=== PATIENT | male | born 1960 | race Caucasian/White ===

== ENCOUNTER 2017-11-08 17:33 | Inpatient (IN) ==
[2017-11-08 18:33] LABS: Amphetamine Screen,Urine Negative ng/mL (Cutoff=1000); Barbiturate Screen,Urine Negative ng/mL (Cutoff=200); Benzodiazepines Screen,Urine Positive ng/mL (Cutoff=200); Cannabinoid Screen,Urine Negative ng/mL (Cutoff = 50); Cocaine Screen,Urine Negative ng/mL (Cutoff= 300); Opiate Screen,Urine Positive ng/mL (Cutoff=300); Phencyclidine Screen,Urine Negative ng/mL (Cutoff=25)
--- NOTE | 2017-11-08 18:59 | Emergency Department Note ---
Overdose - [facility] Narrative Medical decision making narrative: Patient alcohol is not significantly elevated. Patient is still altered. He will be admitted to the hospitalist for further care and evaluation of his altered mental status. CT of his head was negative for acute fracture or intracranial hemorrhage or mass. Patient will require a behavioral health assessment for the statements he made at the [place]. - Medical Records Medical records reviewed: Yes I reviewed the patient's medical records. - Lab Data Lab results reviewed: Yes I reviewed the patient's lab results. Result diagrams: 11/08/17 18:23 11/08/17 18:23 Lab Results 11/08/17 11/08/17 11/08/17 Range/Units 18:15 18:23 18:23 WBC 9.9 (4.3-11.1) K/mcL RBC 5.59 H (4.19-5.50) M/mcL Hgb 16.4 (12.9-16.9) g/dL Hct 48.5 (37.5-50.1) % MCV 86.8 (83.0-100.0) fL MCH 29.3 (28.0-33.3) pg MCHC 33.8 (31.6-35.5) g/dL RDW 13.7 (11.5-14.5) % Plt Count 202 (140-400) K/mcL MPV 12.0 (9.4-12.4) fL Immature Gran % 0.6 (0-4) % Seg Neutrophils % 77.2 % Lymphocytes % 16.5 % Monocytes % 5.0 % Eosinophils % 0.2 % Basophils % 0.5 % Neutrophils # 7.6 (1.6-8.9) K/mcL Lymphocytes # 1.6 (0.6-4.6) K/mcL Monocytes # 0.5 (0.0-1.3) K/mcL Eosinophils # 0.0 (0.0-0.6) K/mcL Basophils # 0.1 (0.0-0.2) K/mcL Sodium 139 (136-145) mEq/L Potassium 3.8 (3.5-5.1) mEq/L Chloride 108 H (98-107) mEq/L Carbon Dioxide 21 L (23-29) mEq/L BUN 13 (6-20) mg/dL Creatinine 0.97 (0.70-1.30) mg/dL Est GFR ( Amer) > 60 (> 60) Est GFR (Non-Af Amer) > 60 (> 60) BUN/Creatinine Ratio 13 (6-26) Glucose 102 (70-105) mg/dL Calculated Osmolality 288 (280-300) Calcium 9.6 (8.6-10.3) mg/dL Total Bilirubin 0.4 (0.3-1.0) mg/dL AST 15 (13-39) Units/L ALT 13 (7-52) Units/L Alkaline Phosphatase 96 (34-104) Units/L Troponin I < 0.03 (< 0.04) ng/mL Serum Total Protein 7.1 (6.4-8.9) g/dL Albumin 4.5 (3.5-5.7) g/dL Globulin 2.6 (2.4-3.5) g/dL Albumin/Globulin Ratio 1.7 (1.1-2.2) Lipase 19 (11-82) Units/L Urine Opiates Screen Positive H (Ekfwxw=082) ng/mL Ur Barbiturates Screen Negative (Kjzrnt=520) ng/mL Ur Phencyclidine Scrn Negative (Cutoff=25) ng/mL Ur Amphetamines Screen Negative (Wkejnb=1933) ng/mL U Benzodiazepines Scrn Positive H (Puhulj=462) ng/mL Urine Cocaine Screen Negative (Cutoff= 300) ng/mL U Marijuana (THC) Screen Negative (Cutoff = 50) ng/mL Ethyl Alcohol (Less than 10) mg/dL 11/08/17 Range/Units 18:23 WBC (4.3-11.1) K/mcL RBC (4.19-5.50) M/mcL Hgb (12.9-16.9) g/dL Hct (37.5-50.1) % MCV (83.0-100.0) fL MCH (28.0-33.3) pg MCHC (31.6-35.5) g/dL RDW (11.5-14.5) % Plt Count (140-400) K/mcL MPV (9.4-12.4) fL Immature Gran % (0-4) % Seg Neutrophils % % Lymphocytes % % Monocytes % % Eosinophils % % Basophils % % Neutrophils # (1.6-8.9) K/mcL Lymphocytes # (0.6-4.6) K/mcL Monocytes # (0.0-1.3) K/mcL Eosinophils # (0.0-0.6) K/mcL Basophils # (0.0-0.2) K/mcL Sodium (136-145) mEq/L Potassium (3.5-5.1) mEq/L Chloride (98-107) mEq/L Carbon Dioxide (23-29) mEq/L BUN (6-20) mg/dL Creatinine (0.70-1.30) mg/dL Est GFR ( Amer) (> 60) Est GFR (Non-Af Amer) (> 60) BUN/Creatinine Ratio (6-26) Glucose (70-105) mg/dL Calculated Osmolality (280-300) Calcium (8.6-10.3) mg/dL Total Bilirubin (0.3-1.0) mg/dL AST (13-39) Units/L ALT (7-52) Units/L Alkaline Phosphatase (34-104) Units/L Troponin I (< 0.04) ng/mL Serum Total Protein (6.4-8.9) g/dL Albumin (3.5-5.7) g/dL Globulin (2.4-3.5) g/dL Albumin/Globulin Ratio (1.1-2.2) Lipase (11-82) Units/L Urine Opiates Screen (Tvbsqt=977) ng/mL Ur Barbiturates Screen (Urnavm=806) ng/mL Ur Phencyclidine Scrn (Cutoff=25) ng/mL Ur Amphetamines Screen (Ugedge=5805) ng/mL U Benzodiazepines Scrn (Cpdsex=546) ng/mL Urine Cocaine Screen (Cutoff= 300) ng/mL U Marijuana (THC) Screen (Cutoff = 50) ng/mL Ethyl Alcohol < 10 (Less than 10) mg/dL - Radiology Data Radiology results reviewed: Yes I reviewed the patient's radiology results. - EKG Data EKG attestation: Yes I reviewed and interpreted this EKG. EKG results narrative: ECG - interpreted by ED physician. Rate 97, normal sinus rhythm, no STEMI, UT, QT intervals, and QRS within normal limits. QRS 86, QTC 399. Overdose HPI - General Chief Complaint: ED Overdose Stated Complaint: OVERDOSE Time Seen by Provider: 11/08/17 17:36 Source: patient Limitations: no limitations, altered mental status Nursing Notes Reviewed: Yes Vital Signs Reviewed: Yes - History of Present Illness HPI Narrative: 57-year-old male presents emergency Department with altered mental status from the [place]. Patient states he took 4 mg of Ativan, 10 mg of Valium and an unknown quantity of rum and beer in order to treat his chronic pain and mood disorder. Patient states that he has been out of his Prozac, oxycodone and gabapentin for the past week. Patient states he took the medications because he can no longer take the pain. Patient has never described having suicidal ideation to the who is present in the emergency department. Patient denies suicidal ideation in the emergency department. However at the [place], according to the notes he apparently admitted to trying to end his life by overdose. - Related Data Allergies Allergy/AdvReac Type Severity Reaction Status Date / Time No Known Allergies Allergy Unverified 11/04/15 01:09 All systems ED: reviewed and negative except as stated. Review of Systems: As Per HPI Past Medical History - Past Medical History Attestation: Yes The following information was validated with the patient. Source: patient Medical history: Reports: COPD, hyperlipidemia, hypertension, kidney stones, renal disease Psychiatric history: Reports: anxiety, depression - Social History Smoking Status: Current every day smoker Smokeless Tobacco Status: No Alcohol use: Reports: heavy Drug use: Reports: none Physical Exam General: Alert and in no acute distress Skin: Warm, dry, intact Head: Normocephalic and atraumatic Neck: Supple, trachea midline and no tenderness Cardiovascular: RRR, no murmur, normal perfusion Respiratory: CTAB, no wheezing, cough, or respiratory distress Musculoskeletal: Normal strength, no tenderness, swelling or deformity GI: Soft, nontender, nondistended. Bowel sounds present Neuro: Patient is able to answer questions appropriately however he seems to be confused in that he is restless in the bed, follows commands but forgets within minutes when he was told. No focal neurologic deficits noted on exam. Psychiatric: cooperative and appropriate mood and affect. - General Limitations: no limitations, altered mental status General appearance: alert Course Vital Signs Temperature 98.1 F 11/08/17 17:35 Pulse Rate 111 11/08/17 17:35 Respiratory Rate 22 11/08/17 17:35 Blood Pressure 111/75 11/08/17 17:35 O2 Sat by Pulse Oximetry 97 11/08/17 17:35 Temperature 98.1 F 11/08/17 17:35 Pulse Rate 87 11/08/17 18:19 Respiratory Rate 18 11/08/17 18:19 Blood Pressure 115/73 11/08/17 18:19 O2 Sat by Pulse Oximetry 96 11/08/17 18:19 Oxygen Delivery Oxygen Delivery Room Air Disposition Clinical Impression: Opiate withdrawal Altered mental status Qualifiers: Altered mental status type: unspecified Qualified Code(s): R41.82 - Altered mental status, unspecified Drug overdose Qualifiers: Encounter type: initial encounter Injury intent: undetermined intent Qualified Code(s): T50.904A - Poisoning by unspecified drugs, medicaments and biological substances, undetermined, initial encounter Disposition: Admitted As Inpatient Condition: Good Instructions: Adult Overdose (ED) Time of Disposition: 21:48
[2017-11-08 19:21] LABS: Basophils # 0.1 K/mcL (0.0-0.2); Basophils % 0.5 %; Eosinophils % 0.2 %; Hematocrit 48.5 % (37.5-50.1); Hemoglobin 16.4 g/dL (12.9-16.9); Immature Granulocytes % 0.6 % (0-4); Lymphocytes # 1.6 K/mcL (0.6-4.6); Lymphocytes % 16.5 %; Mean Corpuscular HGB Conc 33.8 g/dL (31.6-35.5); Mean Corpuscular Hemoglobin 29.3 pg (28.0-33.3); Mean Corpuscular Volume 86.8 fL (83.0-100.0); Monocytes # 0.5 K/mcL (0.0-1.3); Neutrophils # 7.6 K/mcL (1.6-8.9); Platelet Count 202 K/mcL (140-400); Red Blood Count 5.59 M/mcL (4.19-5.50); Red Cell Distribution Width 13.7 % (11.5-14.5); Segmented Neutrophils % 77.2 %
[2017-11-08 19:36] LABS: Troponin I < 0.03 ng/mL (< 0.04)
[2017-11-08 19:42] LABS: Alanine Aminotransferase 13 Units/L (7-52); Albumin 4.5 g/dL (3.5-5.7); Albumin/Globulin Ratio 1.7 (1.1-2.2); Alkaline Phosphatase 96 Units/L (34-104); Aspartate Amino Transferase 15 Units/L (13-39); BUN/Creatinine Ratio 13 (6-26); Bilirubin,Total 0.4 mg/dL (0.3-1.0); Blood Urea Nitrogen 13 mg/dL (6-20); Calcium 9.6 mg/dL (8.6-10.3); Carbon Dioxide 21 mEq/L (23-29); Chloride 108 mEq/L (98-107); Globulin 2.6 g/dL (2.4-3.5); Glucose 102 mg/dL (70-105); Lipase 19 Units/L (11-82); Osmolality,Calculated 288 (280-300); Potassium 3.8 mEq/L (3.5-5.1); Sodium 139 mEq/L (136-145); Total Protein 7.1 g/dL (6.4-8.9); eGFR For African Americans > 60 (> 60); eGFR For Non-African Americans > 60 (> 60)
[2017-11-08] MEDS ORDERED: Haloperidol Lactate 5 MG/ML VIAL IVP ONE (20:04)
[2017-11-08] MEDS ORDERED: *HR* LORazepam 2 MG/ML VIAL IVP ONE (20:04)
[2017-11-08] MEDS ORDERED: *HR* FentaNYL (PF) 100 MCG/2 ML VIAL IVP ONE (20:08)
[2017-11-08] MEDS ORDERED: Naloxone 0.4 MG/ML INJ IVP PRN (21:31)
[2017-11-08] MEDS ORDERED: Acetaminophen 325 MG TABLET PO PRN (21:31)
--- NOTE | 2017-11-08 21:41 | Internal Med History&Physical ---
Date of Encounter: 11/08/17 Time of Encounter: 21:00 Internal Medicine - H&P: HPI Chief complaint: AMS Admitted From: Intrahospital Transfer Plans for Post Hospital Care: Home History of present illness: Mr. Vazquez is a 57 year old male transferred from [facility] for AMS. PMH is significant for chronic groin pain due to hernia, on oxycodone and s/p pain stimulator implant. Pt is altered mental status and cannot answer questions properly. He open eyes on verbal stimulation and follow commands. Hx is obtained from pt's . Pt run out of oxycodone on Wednesday and run out of Prozac since yesterday. This morning pt took 4mg of ativan, 10mg of valium and drink some beer and rum. Pt called his in the afternoon about 2pm and his feels he is abnormal on phone and came home immediately. Pt was found altered mental status. No SOB, nausea, or vomiting. Pt was send to [place] and had gastric lavage in [place]. Pt was transferred to our hospital for further management. Past Med Surg Social Fam HX - Past Medical History Medical history: COPD, hyperlipidemia, hypertension, kidney stones, renal disease Psychiatric history: anxiety, depression - Social History Smoking Status: Current every day smoker Smokeless Tobacco Status: No Alcohol use: heavy Drug use: none - Family History Mother History Unknown: Yes Internal Medicine - H&P: Meds Amitriptyline [Elavil] 50 mg PO DAILY 11/08/17 [History] BuPROPion SR (12 HR) [Wellbutrin SR] 150 mg PO DAILY 11/08/17 [History] FLUoxetine HCl [Prozac] 20 mg PO BID 11/08/17 [History] Gabapentin [Neurontin] 600 mg PO TID 11/08/17 [History] Oxycodone HCl [Oxycontin] 60 mg PO Q8H 11/08/17 [History] Promethazine [Phenergan] 25 mg PO Q8H PRN 11/08/17 [History] 3 Allergy/AdvReac Type Severity Reaction Status Date / Time No Known Allergies Allergy Verified 11/08/17 21:41 All Systems PM: A 10-system review of systems was performed and is negative for pertinent findings except as documented above in the HPI. - Constitutional Vitals: Temp Pulse Resp BP Pulse Ox 98.1 F 87 18 115/73 96 11/08/17 17:35 11/08/17 18:19 11/08/17 18:19 11/08/17 18:19 11/08/17 18:19 General appearance: Present: A&O X 1, no acute distress - Head Head exam: Present: atraumatic, normocephalic - Eye Eye exam: Present: PERRL, conjuntiva pink, sclera anicteric Pupils: Present: PERRL - Neck Neck exam general surgery: Present: supple, trachea midline. Absent: lymphadenopathy - Respiratory Respiratory exam: Present: CTAB. Absent: accessory muscle use, rales, rhonchi, wheezes - Cardiovascular Cardiovascular exam: Present: RRR, +S1, +S2. Absent: diastolic murmur, gallop, rubs, systolic murmur - GI/Abdominal GI/Abdominal exam: Present: normal bowel sounds, soft, no peritoneal signs. Absent: distended, tenderness - Extremities Exam Extremities exam: Present: warm, radial pulses palpable and symmetrical. Absent : calf tenderness, cyanotic, pedal edema - Neurological Exam Neurological exam: Present: CN II-XII intact, oriented X3, no focal deficits. Absent: pronater drift, facial droop, speech deficit - Skin Skin exam: Present: dry, intact Internal Med - H&P Results - Labs CBC & Chem 7: 11/08/17 18:23 11/08/17 18:23 - Assessment and plan (1) Acute encephalopathy Current Visit: Yes Status: Acute Assessment and plan: Most likely due to benzo over dose. Currently pt has patent airway, no signs of respiratory depression, vitals stable. Pt had gastric lavage already in [place] hospital. - Place pt on cardiac and oxymetry monitoring - Neuro check q4hr - NPO, aspiration precautions, elevate head of bed - IVF - Pain med and sedative as needed every time after evaluation of pt's general condition. (2) CHESTER (obstructive sleep apnea) Current Visit: Yes Status: Acute Assessment and plan: Pt has CHESTER and was prescribed CPAP but he doesn't use it at home. Will place pt on NC O2 and continuous pulse oxymitry monitoring. Hold CPAP as pt has AMS and aspiration risk. (3) Medication overdose Current Visit: Yes Status: Acute Assessment and plan: Management as above. Qualifiers: Encounter type: initial encounter Qualified Code(s): T50.901A - Poisoning by unspecified drugs, medicaments and biological substances, accidental ( unintentional), initial encounter (4) Suicidal ideation Current Visit: Yes Status: Acute Assessment and plan: Pt state SI at [place], will consult psych. 1:1 sitter. Suicidal precaution. (5) Depression Current Visit: Yes Status: Acute Assessment and plan: Consult psych to adjust meds. Qualifiers: Depression Type: major depressive disorder Major depression recurrence: recurrent Active/Remission status: remission status unspecified Qualified Code(s): F33.9 - Major depressive disorder, recurrent, unspecified (6) DVT prophylaxis Current Visit: Yes Status: Acute - Time Spent With Patient Total time spent is greater than 50% in coordination of care (as documented) at patient's floor/unit and/or counseling patient:
[2017-11-09] MEDS: 0.9 % Sodium Chloride 1,000 ML IVC SCH ×2 (00:22→09:21)
[2017-11-09] MEDS: Nicotine 14 MG PATCH.TD24 TD SCH ×2 (00:23→09:22)
[2017-11-09] MEDS ORDERED: *HR* FentaNYL (PF) 100 MCG/2 ML VIAL IVP ONE (03:35)
[2017-11-09 05:53] LABS: Basophils % 0.4 %; Eosinophils % 0.3 %; Hematocrit 46.3 % (37.5-50.1); Hemoglobin 15.6 g/dL (12.9-16.9); Immature Granulocytes % 0.3 % (0-4); Lymphocytes # 2.2 K/mcL (0.6-4.6); Lymphocytes % 19.1 %; Mean Corpuscular HGB Conc 33.7 g/dL (31.6-35.5); Mean Corpuscular Hemoglobin 29.4 pg (28.0-33.3); Mean Corpuscular Volume 87.4 fL (83.0-100.0); Mean Platelet Volume 11.6 fL (9.4-12.4); Monocytes # 0.7 K/mcL (0.0-1.3); Monocytes % 6.5 %; Neutrophils # 8.3 K/mcL (1.6-8.9); Platelet Count 197 K/mcL (140-400); Red Cell Distribution Width 13.6 % (11.5-14.5); Segmented Neutrophils % 73.4 %
[2017-11-09 06:12] LABS: BUN/Creatinine Ratio 17 (6-26); Blood Urea Nitrogen 15 mg/dL (6-20); Calcium 8.9 mg/dL (8.6-10.3); Carbon Dioxide 24 mEq/L (23-29); Chloride 109 mEq/L (98-107); Glucose 98 mg/dL (70-105); Magnesium 2.2 mg/dL (1.6-2.6); Osmolality,Calculated 287 (280-300); Potassium 3.8 mEq/L (3.5-5.1); Sodium 138 mEq/L (136-145); eGFR For African Americans > 60 (> 60); eGFR For Non-African Americans > 60 (> 60)
[2017-11-09] MEDS: *HR* OxyCODONE Immed Rel 15 MG TABLET PO PRN ×4 (06:55→21:10)
[2017-11-09] MEDS: *HR* Heparin 5,000 UNIT/ML VIAL SQ SCH ×2 (06:55→17:05)
--- NOTE | 2017-11-09 14:25 | Consult Note ---
Date of Encounter: 11/09/17 Time of Encounter: 13:00 Assessment & Recommendation (1) Major depressive disorder without psychotic features Current visit: Yes Status: Acute Assessment & Recommendation: restart prozac 40 mg am . counselling referral Qualifiers: Major depression recurrence: recurrent Active/Remission status: currently active Major depression episode severity: severe Qualified Code(s): F33.2 - Major depressive disorder, recurrent severe without psychotic features (2) Medication overdose Current visit: Yes Status: Resolved Assessment & Recommendation: patient took ativan and valium for with drawl s/s from opiate , he did not wanted to hurt self. Qualifiers: Encounter type: initial encounter Injury intent: accidental or unintentional Qualified Code(s): T50.901A - Poisoning by unspecified drugs, medicaments and biological substances, accidental (unintentional), initial encounter History of Present Illness Patient: new to practice Requesting Physician: Ortega Hayden Reason for consult: overdose History of present illness: Mr. Vazquez is a 57 year old male consulted today for overdose. He was evaluated at his bedside with Ms Balbuena present with his permission. Patient stated he ran out of his pain medications on wednesday and he was having with drawl and had ativan and valium thought it would help his with drawl and too 2 ativan and one 10 mg valium with beer and rum. states he did not felt good so called his , who then bought him to [place] and had gastric lavage and transfered to [facility] for further care. he stated He is not suicidal and he did not do to hurt himself. He ran out of his prozac also which has been started 3 months ago and he feels it has been helping . He has been in treatment for depression since 2010 , when also suffered injury at work . He states he does well when he has his pain medication and his prozac , he said he never abuse his pain medication and its in lock , states he is taking them for long time and has pain management since 2010. As per him his son took some, he is not sure. As per him he never ran out of them early. he is feeling down but not hopeless or suicidal. he denies any psychosis, no sharon. He denies any alcohol abuse. His agreed to all . PAST PSYCH History H/O Depression and has been on multiple antidepressant by PCP now feels 40 mg prozac working well. no psych inpatient , no h/o SI/HI. substance use denies any Medical: h/o Hernia and 7 surgeries for repair. also had spinal stimulator social h/o has worked for [employer] for 20 years , in [employer] for 10 years. second time, has 3 children. Family h/o Substance use 2 sons mother depression Father commited suicide. A/R Major depressive disorder Recurrent moderate Chronic pain Restart prozac 40 mg po am NO Benzo continue counselling , has counsellor for 6 months now. patient not in danger to self/others at present. is supportive. no sitter needed. Thank you for consult will sign out. CC: Ortega Hayden Past Med Surg Social Fam HX - Past Medical History Medical history: COPD, hyperlipidemia, hypertension, kidney stones, renal disease - Past Psychiatric History Psychiatric history: Reports: anxiety, depression Family psychiatric history: Yes Family History of Suicide: Completed (father commited suicide) - Social History Smoking Status: Current every day smoker Smokeless Tobacco Status: No Alcohol use: rarely, heavy Drug use: none - Family History Mother History Unknown: Yes Medications & Allergies Amitriptyline [Elavil] 50 mg PO DAILY 11/08/17 [History] BuPROPion SR (12 HR) [Wellbutrin SR] 150 mg PO DAILY 11/08/17 [History] FLUoxetine HCl [Prozac] 20 mg PO BID 11/08/17 [History] Gabapentin [Neurontin] 600 mg PO TID 11/08/17 [History] Oxycodone HCl [Oxycontin] 60 mg PO Q8H 11/08/17 [History] Promethazine [Phenergan] 25 mg PO Q8H PRN 11/08/17 [History] 3 Allergy/AdvReac Type Severity Reaction Status Date / Time No Known Allergies Allergy Verified 11/08/17 21:41 Review of Systems Psychiatric: Reports: depression, anxiety Psychiatry Exam - Constitutional Vitals: Temp Pulse Resp BP Pulse Ox 98.2 F 88 18 120/80 95 11/09/17 07:17 11/09/17 07:17 11/09/17 07:17 11/09/17 07:17 11/09/17 07:17 General appearance: age & developmentally appropriate - Musculoskeletal Strength & Tone: normal for patient - Psychiatric Patient Orientation: Yes Person, Yes Time, Yes Place Level of alertness: Alert Behavior: calm, cooperative Eye Contact: Maintains Eye Contact Mood Description: Depressed Affect description: congruent with mood Speech Volume: Normal Speech pattern: normal rate, normal rhythm, normal tone, fluent, spontaneous Language & Vocabulary: consistent with education Thought Process: Linear, Goal Oriented Thought Content: No Suicidal ideation, No Homicidal ideation, No Overt delusions Perceptual Disturbances: No Auditory hallucinations, No Visual hallucinations Attention Span Ability: Capable of Focused Attention Memory Description: Grossly Intact Patient Reliability: Reliable Historian Fund of knowledge: Yes abstraction ability, Yes aware of current events Intelligence Estimate: Average Judgment: Fair Insight: Full Results - Labs Labs: Laboratory Last Values WBC 11.3 K/mcL (4.3-11.1) H 11/09/17 05:18 RBC 5.30 M/mcL (4.19-5.50) 11/09/17 05:18 Hgb 15.6 g/dL (12.9-16.9) 11/09/17 05:18 Hct 46.3 % (37.5-50.1) 11/09/17 05:18 MCV 87.4 fL (83.0-100.0) 11/09/17 05:18 MCH 29.4 pg (28.0-33.3) 11/09/17 05:18 MCHC 33.7 g/dL (31.6-35.5) 11/09/17 05:18 RDW 13.6 % (11.5-14.5) 11/09/17 05:18 Plt Count 197 K/mcL (140-400) 11/09/17 05:18 MPV 11.6 fL (9.4-12.4) 11/09/17 05:18 Immature Gran % 0.3 % (0-4) 11/09/17 05:18 Seg Neutrophils % 73.4 % 11/09/17 05:18 Lymphocytes % 19.1 % 11/09/17 05:18 Monocytes % 6.5 % 11/09/17 05:18 Eosinophils % 0.3 % 11/09/17 05:18 Basophils % 0.4 % 11/09/17 05:18 Neutrophils # 8.3 K/mcL (1.6-8.9) 11/09/17 05:18 Lymphocytes # 2.2 K/mcL (0.6-4.6) 11/09/17 05:18 Monocytes # 0.7 K/mcL (0.0-1.3) 11/09/17 05:18 Eosinophils # 0.0 K/mcL (0.0-0.6) 11/09/17 05:18 Basophils # 0.0 K/mcL (0.0-0.2) 11/09/17 05:18 Sodium 138 mEq/L (136-145) 11/09/17 05:18 Potassium 3.8 mEq/L (3.5-5.1) 11/09/17 05:18 Chloride 109 mEq/L (98-107) H 11/09/17 05:18 Carbon Dioxide 24 mEq/L (23-29) 11/09/17 05:18 BUN 15 mg/dL (6-20) 11/09/17 05:18 Creatinine 0.86 mg/dL (0.70-1.30) 11/09/17 05:18 Est GFR ( Amer) > 60 (> 60) 11/09/17 05:18 Est GFR (Non-Af Amer) > 60 (> 60) 11/09/17 05:18 BUN/Creatinine Ratio 17 (6-26) 11/09/17 05:18 Glucose 98 mg/dL (70-105) 11/09/17 05:18 Calculated Osmolality 287 (280-300) 11/09/17 05:18 Calcium 8.9 mg/dL (8.6-10.3) 11/09/17 05:18 Magnesium 2.2 mg/dL (1.6-2.6) 11/09/17 05:18 Total Bilirubin 0.4 mg/dL (0.3-1.0) 11/08/17 18:23 AST 15 Units/L (13-39) 11/08/17 18:23 ALT 13 Units/L (7-52) 11/08/17 18:23 Alkaline Phosphatase 96 Units/L (34-104) 11/08/17 18:23 Troponin I < 0.03 ng/mL (< 0.04) 11/08/17 18:23 Serum Total Protein 7.1 g/dL (6.4-8.9) 11/08/17 18:23 Albumin 4.5 g/dL (3.5-5.7) 11/08/17 18:23 Globulin 2.6 g/dL (2.4-3.5) 11/08/17 18:23 Albumin/Globulin Ratio 1.7 (1.1-2.2) 11/08/17 18:23 Lipase 19 Units/L (11-82) 11/08/17 18:23 Urine Opiates Screen Positive ng/mL (Xmqkrv=637) H 11/08/17 18:15 Ur Barbiturates Screen Negative ng/mL (Mygaow=857) 11/08/17 18:15 Ur Phencyclidine Scrn Negative ng/mL (Cutoff=25) 11/08/17 18:15 Ur Amphetamines Screen Negative ng/mL (Qqdufs=3575) 11/08/17 18:15 U Benzodiazepines Scrn Positive ng/mL (Gaqvkb=118) H 11/08/17 18:15 Urine Cocaine Screen Negative ng/mL (Cutoff= 300) 11/08/17 18:15 U Marijuana (THC) Screen Negative ng/mL (Cutoff = 50) 11/08/17 18:15 Ethyl Alcohol < 10 mg/dL (Less than 10) 11/08/17 18:23 Consult Discharge Plan - Plan Instructions: Adult Overdose (ED) [facility] [Primary Care Provider] -
--- NOTE | 2017-11-09 16:49 | Internal Med Progress Note ---
Date of Encounter: 11/09/17 Time of Encounter: 11:00 - Assessment and plan (1) Medication overdose Current Visit: Yes Status: Resolved Assessment and plan: Patient appeared somnolent this morning secondary to overdose with opiates and benzodiazepines Vital signs stable and patient without any respiratory distress on room air Psychiatry consulted and determined that patient did not intend harm to self Will continue to monitor Qualifiers: Encounter type: initial encounter Injury intent: accidental or unintentional Qualified Code(s): T50.901A - Poisoning by unspecified drugs, medicaments and biological substances, accidental (unintentional), initial encounter (2) Acute encephalopathy Current Visit: Yes Status: Acute Assessment and plan: Resolved; secondary to benzodiazepine and opiate overdose. Patient did appear somnolent this morning so we will continue to monitor (3) Depression Current Visit: Yes Status: Deleted Assessment and plan: Psychiatry with recommendations to restart Prozac at 40 mg daily. Discharge recommendations for outpatient therapy Qualifiers: Psychotic features: without psychotic features Qualified Code(s): F32.2 - Major depressive disorder, single episode, severe without psychotic features (4) CHESTER (obstructive sleep apnea) Current Visit: Yes Status: Acute Assessment and plan: Pt has CHESTER and was prescribed CPAP but he doesn't use it at home. Will continue on NC O2 and continuous pulse oxymitry monitoring. Hold CPAP due to patient's somnolence and aspiration risk. (5) DVT prophylaxis Current Visit: Yes Status: Acute Assessment and plan: Heparin subcutaneous - Time Spent With Patient Total time spent is greater than 50% in coordination of care (as documented) at patient's floor/unit and/or counseling patient: - Subjective Interval history: Patient appeared somnolent this morning secondary to overdose with opiates and benzodiazepines Vital signs stable and patient without any respiratory distress on room air - Constitutional Vitals: Temp Pulse Resp BP Pulse Ox 98.1 F 68 18 128/86 95 11/09/17 14:17 11/09/17 14:17 11/09/17 07:17 11/09/17 14:22 11/09/17 07:17 General appearance: Present: A&O X 1, no acute distress - Respiratory Respiratory exam: Present: CTAB. Absent: accessory muscle use, rales, rhonchi, wheezes - Cardiovascular Cardiovascular exam: Present: RRR, +S1, +S2. Absent: diastolic murmur, gallop, rubs, systolic murmur Internal Medicine: Result - Labs CBC & Chem 7: 11/09/17 05:18 11/09/17 05:18 Labs: Short CBC 11/09/17 Range/Units 05:18 WBC 11.3 H (4.3-11.1) K/mcL Hgb 15.6 (12.9-16.9) g/dL Hct 46.3 (37.5-50.1) % Plt Count 197 (140-400) K/mcL Neutrophils # 8.3 (1.6-8.9) K/mcL BMP 11/09/17 05:18 Sodium 138 Potassium 3.8 Chloride 109 H Carbon Dioxide 24 BUN 15 Creatinine 0.86 Glucose 98 Calcium 8.9 Consult Discharge Plan - Plan Instructions: Adult Overdose (ED) [facility]errals: [facility] [Primary Care Provider] -
[2017-11-10] MEDS: *HR* OxyCODONE Immed Rel 15 MG TABLET PO PRN ×2 (03:05→08:35)
[2017-11-10] MEDS: *HR* Heparin 5,000 UNIT/ML VIAL SQ SCH (05:42)
[2017-11-10] MEDS: Nicotine 14 MG PATCH.TD24 TD SCH (08:35)
--- NOTE | 2017-11-10 10:46 | Discharge Summary ---
Date of Encounter: 11/10/17 Time of Encounter: 11:00 - Discharge Diagnosis (1) Medication overdose Priority: Primary Status: Resolved Qualifiers: Encounter type: initial encounter Injury intent: accidental or unintentional Qualified Code(s): T50.901A - Poisoning by unspecified drugs, medicaments and biological substances, accidental (unintentional), initial encounter (2) Acute encephalopathy Priority: Primary Status: Acute (3) Depression Priority: Primary Status: Deleted Qualifiers: Psychotic features: without psychotic features Qualified Code(s): F33.2 - Major depressive disorder, recurrent severe without psychotic features (4) [place] (obstructive sleep apnea) Priority: Primary Status: Acute Hospital course: Patient is a 57-year-old male with past medical history significant for chronic groin pain on oxycodone and status post pain stimulator implant, mood disorder, hypertension and hyperlipidemia who presented as a transfer from the [place] on due to altered mental status. History was obtained by who reported that patient ran out of oxycodone and Prozac. The morning of admission, patient took 4mg of Ativan, 10mg of valium and drink some beer and rum. Patient then later called his in the afternoon and felt that patient sounded different on the phone and decided to return home. Patient was found by to have altered mental status. Patient was brought to the [place] and had gastric lavage. Patient was transferred to [facility] for further medical management. During patients hospital stay, his altered mental status resolved. Psychiatry was consulted and evaluated the patient who felt that the overdose was accidental and that patient did not attend any harm. Recommendations from psychiatry for patient to continue psychiatry meds and to follow-up with outpatient counseling. - Time Spent with Patient Total time spent providing and/or coordinating discharge services: Less than 30 minutes - Discharge Medications Home Medications: Amitriptyline [Elavil] 50 mg PO DAILY 11/08/17 [History] BuPROPion SR (12 HR) [Wellbutrin SR] 150 mg PO DAILY 11/08/17 [History] FLUoxetine HCl [Prozac] 20 mg PO BID 11/08/17 [History] Gabapentin [Neurontin] 600 mg PO TID 11/08/17 [History] Oxycodone HCl [Oxycontin] 60 mg PO Q8H 11/08/17 [History] Promethazine [Phenergan] 25 mg PO Q8H PRN 11/08/17 [History] Allergies/Adverse Reactions: 3 Allergy/AdvReac Type Severity Reaction Status Date / Time No Known Allergies Allergy Verified 11/08/17 21:41 Date of admission: 11/08/17 22:25 Primary care physician: PCP RAVI Consults: 11/09/17 09:53 Consult to Dev Technical Mgr [CONS] Routine Reason for Consult: Ttrouble filling prescriptions. - Constitutional Vitals: Temp Pulse Resp BP Pulse Ox 97.5 F L 65 14 123/86 97 11/10/17 06:44 11/10/17 06:44 11/10/17 06:44 11/10/17 06:44 11/10/17 06:44 General appearance: Present: A&O X 1, no acute distress - Respiratory Respiratory exam: Present: CTAB. Absent: accessory muscle use, rales, rhonchi, wheezes - Cardiovascular Cardiovascular exam: Present: RRR, +S1, +S2. Absent: diastolic murmur, gallop, rubs, systolic murmur - Patient Status Disposition: Home, Self-Care Condition: Good - Discharge Instructions Instructions: Adult Overdose (ED) Follow Up With: RAVIPCP [Primary Care Provider] - 11/17/17 11:30 am
[2017-11-10 11:39] VITALS: BP 109/93
--- NOTE | 2017-11-12 16:53 | Electrocardiograph Report ---
[address] [address] Test Date: 2017-11-08 Pat Name: Jonnathan Vazquez Department: 103 Room: [facility] Gender: M Customer Business Manager: : [id number] Requested By: Jason Luque Order Number: [id number] Reading MD: Elena Caldwell Measurements Intervals [place] Rate: 97 P: 50 MT: 129 QRS: 8 QRSD: 86 T: 50 QT: 345 QTc: 399 Interpretive Statements SINUS RHYTHM Electronically Signed On 11-12-2017 16:51:42 EDT by Elena Caldwell
== END 2017-11-10 12:01 | disposition home or self-care (01) | DRG 917 ==
LOC: EMEROO 17:33 → 2NENU 17:33 → SUATTDRO 22:25 → 2NENU 22:43
PROVIDERS: ADMIT Internal Medicine; ATTEND Hospitalist